=== PATIENT | female | born 1935 | race Caucasian/White ===

== ENCOUNTER 2019-09-04 15:36 | Inpatient (IN) | payer MEDICARE ==
[~2019-09-04] VITALS: Ht 157.5 cm; Wt 63.0 kg
[2019-09-04] MEDS ORDERED: CefTRIAXone 2gm/D5W 50ml 50 ML IV ONE (15:55)
[2019-09-04] MEDS ORDERED: normal saline 1000ML IV soln IV ONE (15:55)
--- NOTE | 2019-09-04 16:02 | NUR ---
PAGED RT FOR BED 5 ABG AT 1606
[2019-09-04 16:41] LABS: ABG BASE EXCESS 0.9 mmol/L (-2.0-3.0); ABG HCO3 23.3 mmol/L (22.0-26.0); ABG OXYGEN SATURATION 91.8 % (95-98); ABG PCO2 (T) 30.3 mmHg (35.0-45.0); ABG PH (T) 7.502 (7.350-7.450); ALLEN'S TEST POSITIVE; FCOHb 0.3 % (0.5-1.5); FLOW 2 L/min; FO2Hb 91.5 % (94-100); PATIENT TEMPERATURE 36.8; TOTAL HEMOGLOBIN 13.5 G/dl (12.0-16.0)
[2019-09-04 16:50] LABS: BASOPHILS % (AUTO) 0 % (0-1); EOSINOPHILS % (AUTO) 0.1 % (0-6); HEMATOCRIT 39.4 % (35.0-45.0); HEMOGLOBIN 13.2 g/dl (12.0-16.0); LYMPHOCYTES # (AUTO) 0.2 X10'3 (1.1-4.8); LYMPHOCYTES % (AUTO) 2.2 % (21-51); MEAN CORPUSCULAR HEMOGLOBIN 31.6 PG (27.0-31.0); MEAN CORPUSCULAR HGB CONC 33.5 g/dL (33.0-36.5); MEAN CORPUSCULAR VOLUME 94.4 FL (78-98); MEAN PLATELET VOLUME 8.8 FL (7.4-10.4); MONOCYTES # (AUTO) 0.1 X10'3 (0-0.9); MONOCYTES % (AUTO) 0.6 % (2-12); NEUTROPHILS # (AUTO) 9.2 X10'3 (1.8-7.7); NEUTROPHILS % (AUTO) 97.1 % (42-75); PLATELET COUNT 164 X10'3 (140-440); RED BLOOD COUNT 4.18 X10'6 (4.20-5.60); RED CELL DISTRIBUTION WIDTH 14.3 % (11.5-14.5); WHITE BLOOD COUNT 9.5 X10'3 (4.5-11.0)
[2019-09-04] MEDS ORDERED: iohexol 350MG/ML 100ml bottle IV ONE (17:05)
[2019-09-04 17:13] LABS: ALANINE AMINOTRANSFERASE 445 U/L (12-78); ALBUMIN 3.7 G/DL (3.4-5.0); ALBUMIN/GLOBULIN RATIO 1.1 (1.1-1.5); ALKALINE PHOSPHATASE 131 IU/L (46-116); ANION GAP 9 (8-16); ASPARTATE AMINO TRANSFERASE 647 U/L (10-37); BILIRUBIN,TOTAL 0.8 MG/DL (0.1-1.0); BLOOD UREA NITROGEN 12 MG/DL (7-18); BUN/CREATININE RATIO 12.6 (6.6-38.0); CALCIUM 9.2 MG/DL (8.5-10.1); CHLORIDE 100 MMOL/L (99-107); CREATININE 0.95 MG/DL (0.40-0.90); GLUCOSE 119 MG/DL (70-104); POTASSIUM 3.9 MMOL/L (3.5-5.1); SODIUM 136 MMOL/L (135-145); TOTAL PROTEIN 7.1 G/DL (6.4-8.2); eGFR 56 ML/MIN
[2019-09-04 17:14] LABS: COLOR,URINE YELLOW (Yellow); GLUCOSE, URINE NEGATIVE (Neg); KETONES,URINE NEGATIVE (Neg); LEUKOCYTE ESTERASE ,URINE NEGATIVE (Neg); NITRITES, URINE NEGATIVE (Neg); OCCULT BLOOD,URINE NEGATIVE (Neg); PH,URINE 7.5 (4.8-8.0); PROTEIN,URINE NEGATIVE (Neg); UROBILINOGEN,URINE 0.2 E.U/dL (0.2-1.0)
[2019-09-04 17:21] LABS: CLARITY,URINE SLIGHTLY CLOUDY (Clear); UA COLLECTION TYPE STRAIGHT CATH
[2019-09-04 17:22] LABS: BACTERIA,URINE NONE SEEN /HPF (Neg); MUCUS STRANDS FEW /LPF (Neg); RBC,URINE 0-2 /HPF (0-2); SQUAMOUS EPITHELIAL CELL,UR NONE SEEN /LPF (FEW); TRANSITIONAL EPI CELLS,URINE FEW /HPF; WBC,URINE 0-4 /HPF (0-4)
--- NOTE | 2019-09-04 17:27 | NUR ---
assumed care of pt, first contact with pt, pt is resting quietly on gurney, resp even and unlabored, mouth is dry, pt c/o feeling cold despite having several blankets, pt used bedpan, able to lift hips without assist, temp 97.8 orally
[2019-09-04 17:39] LABS: C-REACTIVE PROTEIN 0.54 MG/DL (0.0-0.5); LACTATE DEHYDROGENASE 617 U/L (81-234)
--- NOTE | 2019-09-04 17:41 | NUR ---
pt to CT, 2nd liter NS infusing w/o
[2019-09-04 17:42] LABS: FERRITIN 2089 NG/ML (8-252)
--- NOTE | 2019-09-04 18:34 | NUR ---
PT HAS USED BEDPAN SEVERAL TIMES TO URINATE
--- NOTE | 2019-09-04 19:01 | NUR ---
purewick placed as pt constantly needs to urinate, changed linen and cleaned pt up, no skin breakdown to back/coccyx, pulse ox has good pleth, 88%on 2 liters, increase 02 to 4 liter nasal cannula pulse ox 93%, pt has no complaint of SOB, "I feel ok...just really cold"
[2019-09-04] MEDS ORDERED: AMLO5TAB16 PO (19:22)
[2019-09-04] MEDS ORDERED: LEVO50TA8 PO (19:22)
[2019-09-04] MEDS ORDERED: metroNIDAZOLE-Flagyl 500mg/NS 100 ML IV STA (19:44)
[2019-09-04] MEDS ORDERED: ondansetron/PF 4mg/2ml inj IV PRN (20:30)
[2019-09-04] MEDS ORDERED: morphine 2 MG/ML inj. syringe IV PRN (20:30)
--- NOTE | 2019-09-04 20:39 | NUR ---
contacted Gregory, son of pt, at PER REQUEST TO PT, HE IS AWARE PT IS GOING TO BE ADMITTED TO HOSPITAL
--- NOTE | 2019-09-04 20:43 | NUR ---
Patient in room ED 5. I have received report from Suzanne PRATHER in the ED and had the opportunity to ask questions and awaiting arrival of patient to the PCU unit.
--- NOTE | 2019-09-04 20:50 | NUR ---
Patient arrived from the ED to PCU at this time. She is alert and oriented and able to make her needs known although she does appear very weak and states she feels awful. Vitals are stable. She is requiring 4 liters oxygen NC to maintain sats WNL. She is oriented to her room and the call light system. Safety precautions are in place. Will continue to monitor.
[2019-09-04] MEDS: normal saline 1000ml 1,000 ML IV SCH (20:56)
[2019-09-04 21:00] VITALS: BP 135/60
--- NOTE | 2019-09-04 23:20 | NUR ---
PAGER ID: [phone] MESSAGE: Patient Eden Mcghee Rm [id number] There is an order for Hydralazine scheduled Q6H. Should this be PRN? Or is it needed? She usually takes Amlodipine 5mg Daily at home. Currently blood pressure is 135/60. Thank you. Liss PRATHER ext. [phone]
[2019-09-04] MEDS ORDERED: hydrALAZINE 20mg/ml inj. IV PRN (23:30)
[2019-09-05 02:00] VITALS: BP 116/50
[2019-09-05] MEDS ORDERED: hydrALAZINE 20mg/ml inj. IV SCH (02:00)
[2019-09-05 05:34] LABS: BASOPHILS % (AUTO) 0.1 % (0-1); EOSINOPHILS % (AUTO) 0 % (0-6); HEMATOCRIT 35.6 % (35.0-45.0); HEMOGLOBIN 11.9 g/dl (12.0-16.0); LYMPHOCYTES # (AUTO) 0.2 X10'3 (1.1-4.8); LYMPHOCYTES % (AUTO) 1.3 % (21-51); MEAN CORPUSCULAR HEMOGLOBIN 31.7 PG (27.0-31.0); MEAN CORPUSCULAR HGB CONC 33.4 g/dL (33.0-36.5); MEAN CORPUSCULAR VOLUME 95.1 FL (78-98); MONOCYTES # (AUTO) 0.4 X10'3 (0-0.9); MONOCYTES % (AUTO) 3.5 % (2-12); NEUTROPHILS # (AUTO) 11.9 X10'3 (1.8-7.7); NEUTROPHILS % (AUTO) 95.1 % (42-75); PLATELET COUNT 141 X10'3 (140-440); RED BLOOD COUNT 3.75 X10'6 (4.20-5.60); WHITE BLOOD COUNT 12.5 X10'3 (4.5-11.0)
[2019-09-05 05:50] LABS: ALBUMIN 2.8 G/DL (3.4-5.0); ANION GAP 8 (8-16); BLOOD UREA NITROGEN 10 MG/DL (7-18); BUN/CREATININE RATIO 11.8 (6.6-38.0); CALCIUM 7.6 MG/DL (8.5-10.1); CHLORIDE 105 MMOL/L (99-107); CREATININE 0.85 MG/DL (0.40-0.90); GLUCOSE 128 MG/DL (70-104); POTASSIUM 3.6 MMOL/L (3.5-5.1); SODIUM 137 MMOL/L (135-145); TOTAL CARBON DIOXIDE 23.8 MMOL/L (24-32); eGFR 64 ML/MIN
[2019-09-05 06:00] VITALS: BP 125/55
--- NOTE | 2019-09-05 06:14 | NUR ---
Problems reprioritized. Patient report given, questions answered & plan of care reviewed with Annemarie PRATHER.
--- NOTE | 2019-09-05 06:15 | NUR ---
Patient in room PCU 3023. I have received report from YAMILKA Leija and had the opportunity to ask questions and assume patient care. Patient is currently resting in bed, bed locked and low, call light in reach, no acute distress, will continue to monitor.
[2019-09-05] MEDS: normal saline 1000ml 1,000 ML IV SCH ×3 (06:36→21:35)
--- NOTE | 2019-09-05 07:42 | NUR ---
PAGER ID: [phone] MESSAGE: YAMILKA Sharpe, ext [phone], [id number], Taz, was told HIDA scan was ordered but none in order history, ABD US done, does patient still need to be NPO?
[2019-09-05] MEDS: levoTHYROXINE 25mcg tablet PO SCH (07:44)
[2019-09-05] MEDS: CefTRIAXone/D5W-Rocephin 1gm 50 ML IV SCH (07:45)
[2019-09-05] MEDS ORDERED: amLODIPine 5mg tablet PO SCH ×2 (08:00→09:35)
[2019-09-05] MEDS ORDERED: sincalide inj 1.3 MCG in normal saline 50ml IV soln 50 ML IV ONE (09:25)
--- NOTE | 2019-09-05 10:07 | NUR ---
PAGER ID: [phone] MESSAGE: Errol Sharpe, ext [phone], [phone], Taz, patient already received amlodipine 5mg tablet this morning, you put in a new order, did you want her to receive a second dose?
[2019-09-05] MEDS: metroNIDAZOLE-Flagyl 500mg/NS 100 ML IV SCH ×3 (10:21→23:59)
[2019-09-05 11:00] VITALS: BP 106/51
[2019-09-05] MEDS ORDERED: morphine 2 MG/ML inj. syringe IV ONE (13:10)
--- NOTE | 2019-09-05 14:51 | NUR ---
PAGER ID: [phone] MESSAGE: YAMILKA Sharpe, ext [phone], [id number], Angie Mcghee scan negative, can I give patient food?
[2019-09-05 15:00] VITALS: BP 125/50
[2019-09-05 18:00] VITALS: BP 111/54
--- NOTE | 2019-09-05 18:18 | NUR ---
Problems reprioritized. Patient report given, questions answered & plan of care reviewed with YAMILKA Hinojosa.
--- NOTE | 2019-09-05 19:37 | NUR ---
Problems reprioritized. Patient report given, questions answered & plan of care reviewed with Annemarie PRATHER.
[2019-09-05 22:00] VITALS: BP 130/54
[2019-09-06 02:00] VITALS: BP 133/62
--- NOTE | 2019-09-06 05:15 | NUR ---
Paged Dr Peña PAGER ID: [phone] MESSAGE: Taz Harmon [id number] Dx Generalized weakness, flu like symptoms. Pt on flagyl and rocephin. Patient states her throat is sore and that her tongue has blisters. Could I get an order for a probiotic and some type of oral rinse? Ext [phone]
[2019-09-06 06:00] VITALS: BP 144/64
[2019-09-06 06:03] LABS: BASOPHILS % (AUTO) 0.3 % (0-1); EOSINOPHILS # (AUTO) 0.1 X10'3 (0-0.9); EOSINOPHILS % (AUTO) 1.3 % (0-6); HEMATOCRIT 35.5 % (35.0-45.0); HEMOGLOBIN 11.9 g/dl (12.0-16.0); LYMPHOCYTES # (AUTO) 0.6 X10'3 (1.1-4.8); LYMPHOCYTES % (AUTO) 7.2 % (21-51); MEAN CORPUSCULAR HEMOGLOBIN 31.7 PG (27.0-31.0); MEAN CORPUSCULAR HGB CONC 33.6 g/dL (33.0-36.5); MEAN CORPUSCULAR VOLUME 94.5 FL (78-98); MEAN PLATELET VOLUME 9.4 FL (7.4-10.4); MONOCYTES # (AUTO) 0.4 X10'3 (0-0.9); MONOCYTES % (AUTO) 4.9 % (2-12); NEUTROPHILS # (AUTO) 7.4 X10'3 (1.8-7.7); NEUTROPHILS % (AUTO) 86.3 % (42-75); PLATELET COUNT 120 X10'3 (140-440); RED BLOOD COUNT 3.76 X10'6 (4.20-5.60); RED CELL DISTRIBUTION WIDTH 14.1 % (11.5-14.5); WHITE BLOOD COUNT 8.6 X10'3 (4.5-11.0)
--- NOTE | 2019-09-06 06:10 | NUR ---
Patient in room PCU 3023L. I have received report from Ashish PRATHER and had the opportunity to ask questions and assume patient care. Patient laying in bed, eyes closed, no signs of distress, will continue to monitor.
[2019-09-06 06:16] LABS: ANION GAP 8 (8-16); BLOOD UREA NITROGEN 11 MG/DL (7-18); BUN/CREATININE RATIO 16.9 (6.6-38.0); CHLORIDE 105 MMOL/L (99-107); CREATININE 0.65 MG/DL (0.40-0.90); GLUCOSE 98 MG/DL (70-104); POTASSIUM 3.3 MMOL/L (3.5-5.1); SODIUM 135 MMOL/L (135-145); TOTAL CARBON DIOXIDE 22.1 MMOL/L (24-32)
[2019-09-06 06:17] LABS: ALBUMIN 2.8 G/DL (3.4-5.0); CALCIUM 8.2 MG/DL (8.5-10.1); eGFR 87 ML/MIN
--- NOTE | 2019-09-06 06:20 | NUR ---
Problems reprioritized. Patient report given, questions answered & plan of care reviewed with Annemarie Norton.
[2019-09-06] MEDS: heparin, porcine 5000 units/ml vial SQ SCH ×2 (07:40→19:48)
[2019-09-06] MEDS: CefTRIAXone/D5W-Rocephin 1gm 50 ML IV SCH (07:40)
[2019-09-06] MEDS: levoTHYROXINE 25mcg tablet PO SCH (07:40)
--- NOTE | 2019-09-06 07:45 | NUR ---
Patient c/o sore throat, mouth soreness and difficulty with swallowing. Pt states that it is very painful to swallow and this makes her feel like she cannot swallow properly. Pt states that this began before she came to the hospital but has been worsening since being here. She is speaking in full sentences, tolerating secretions and able to drink and eat, but complaints of doing so. Mouth with white areas to tongue and redness to tongue. Will continue to monitor patient.
[2019-09-06] MEDS ORDERED: levoTHYROXINE 25mcg tablet PO SCH (08:00)
[2019-09-06] MEDS: amLODIPine 5mg tablet PO SCH (09:13)
[2019-09-06] MEDS: metroNIDAZOLE-Flagyl 500mg/NS 100 ML IV SCH (09:13)
[2019-09-06 11:00] VITALS: BP 118/61
[2019-09-06] MEDS ORDERED: potassium Cl 20 mEq SR tablet PO PRN (11:30)
[2019-09-06] MEDS ORDERED: potassium CL 10mEq/100ml bag 100 ML IV PRN (11:30)
[2019-09-06] MEDS ORDERED: magnesium Cl slow-release 64mg tablet PO PRN (11:30)
[2019-09-06] MEDS ORDERED: magnesium 4gm in 100ml NS 100 ML IV PRN (11:30)
[2019-09-06] MEDS ORDERED: magnesium hydroxide 30ml (MOM) UD suspension PO ONE (11:35)
[2019-09-06] MEDS ORDERED: docusate sod 100mg capsule PO ONE (11:35)
[2019-09-06] MEDS ORDERED: bisacodyl 10mg suppository rectal RC PRN (11:35)
--- NOTE | 2019-09-06 11:36 | NUR ---
PAGER ID: [phone] MESSAGE: Annemarie tran [phone]. RE Doug Mcghee . Can we switch patient to PO abx or did you want to continue IV abx? Kat wants to know for rehab placement. Thanks!
[2019-09-06] MEDS: K and/or MAG REPLACEMENT MC SCH ×2 (11:54→20:00)
--- NOTE | 2019-09-06 12:00 | NUR ---
Patient tele monitor discontinued at this time per MD order. Reviewed tele monitoring with rn telephonic prior to removal and patient has been sinus rhythm/sinus tachycardia up into the 120-130's with activity, no other changes.
[2019-09-06] MEDS: potassium Cl 20 mEq SR tablet PO PRN ×3 (12:08→21:08)
[2019-09-06] MEDS: normal saline 1000ml 1,000 ML IV SCH ×2 (12:26→21:19)
[2019-09-06] MEDS: nystatin 500,000 unit/5ML UD oral suspension PO SCH ×2 (13:21→21:08)
--- NOTE | 2019-09-06 14:15 | NUR ---
PAGER ID: [phone] MESSAGE: Annemarie tran [phone]. RE Doug Mcghee [id number]. Saw you ordered abx PO for patient, do you want to d/c IV abx? Thanks!
[2019-09-06 15:00] VITALS: BP 144/56
[2019-09-06] MEDS: amox tr/potassium clavulanate 500mg/125mg TAB PO SCH (17:03)
--- NOTE | 2019-09-06 17:30 | NUR ---
Problems reprioritized. Patient report given, questions answered & plan of care reviewed with Ashwini PRAHTER.
[2019-09-06 18:00] VITALS: BP 135/54
[2019-09-06] MEDS: lactobacillus rhamnosus 10,000 MMU CELLS/CAPSULE PO SCH (19:48)
[2019-09-06] MEDS: docusate sod 100mg capsule PO SCH (19:49)
[2019-09-06 22:00] VITALS: BP 151/74
[2019-09-07 02:00] VITALS: BP 140/95
[2019-09-07 06:00] VITALS: BP 144/73
[2019-09-07 06:13] LABS: BASOPHILS % (AUTO) 0.2 % (0-1); EOSINOPHILS # (AUTO) 0.2 X10'3 (0-0.9); EOSINOPHILS % (AUTO) 3.6 % (0-6); HEMATOCRIT 35.8 % (35.0-45.0); HEMOGLOBIN 12.1 g/dl (12.0-16.0); LYMPHOCYTES % (AUTO) 14.6 % (21-51); MEAN CORPUSCULAR HGB CONC 33.8 g/dL (33.0-36.5); MEAN CORPUSCULAR VOLUME 94.6 FL (78-98); MEAN PLATELET VOLUME 8.9 FL (7.4-10.4); MONOCYTES # (AUTO) 0.4 X10'3 (0-0.9); NEUTROPHILS # (AUTO) 5.1 X10'3 (1.8-7.7); NEUTROPHILS % (AUTO) 75.6 % (42-75); PLATELET COUNT 125 X10'3 (140-440); RED BLOOD COUNT 3.79 X10'6 (4.20-5.60); RED CELL DISTRIBUTION WIDTH 14.3 % (11.5-14.5); WHITE BLOOD COUNT 6.8 X10'3 (4.5-11.0)
--- NOTE | 2019-09-07 06:20 | NUR ---
Problems reprioritized. Patient report given, questions answered & plan of care reviewed with YAMILKA Oh.
[2019-09-07 06:27] LABS: ALBUMIN 2.9 G/DL (3.4-5.0); ANION GAP 8 (8-16); BLOOD UREA NITROGEN 6 MG/DL (7-18); BUN/CREATININE RATIO 9.7 (6.6-38.0); CALCIUM 8.1 MG/DL (8.5-10.1); CHLORIDE 106 MMOL/L (99-107); CREATININE 0.62 MG/DL (0.40-0.90); GLUCOSE 95 MG/DL (70-104); SODIUM 136 MMOL/L (135-145); TOTAL CARBON DIOXIDE 22.5 MMOL/L (24-32); eGFR > 90 ML/MIN
[2019-09-07] MEDS: heparin, porcine 5000 units/ml vial SQ SCH (08:00)
[2019-09-07] MEDS: docusate sod 100mg capsule PO SCH (08:00)
[2019-09-07] MEDS: lactobacillus rhamnosus 10,000 MMU CELLS/CAPSULE PO SCH (08:06)
[2019-09-07] MEDS: levoTHYROXINE 25mcg tablet PO SCH (08:06)
[2019-09-07] MEDS: nystatin 500,000 unit/5ML UD oral suspension PO SCH ×2 (08:07→14:20)
[2019-09-07] MEDS: amox tr/potassium clavulanate 500mg/125mg TAB PO SCH (08:07)
[2019-09-07] MEDS: amLODIPine 5mg tablet PO SCH (08:08)
[2019-09-07] MEDS: K and/or MAG REPLACEMENT MC SCH (08:19)
[2019-09-07] MEDS: normal saline 1000ml 1,000 ML IV SCH (08:22)
--- NOTE | 2019-09-07 11:52 | NUR ---
PAGER ID: [phone] MESSAGE: Dr. Curry-Please address the medication area on the discharge for Doug Mcghee in rm 1298I on PCU. Patient is dressed and ready to go. Thank you, Doug Oh RN 8234 PCU
--- NOTE | 2019-09-07 12:09 | NUR ---
PAGER ID: [phone] MESSAGE: Dr. Curry, Please complete discharge for pt Doug Mcghee rm 23C. Patient should have oral antbiotics to go home on for UTi? Thank you, Doug Oh RN 0820 U
[2019-09-07] MEDS ORDERED: NYST1000 PO (12:11)
[2019-09-07] MEDS ORDERED: AMOX1TAB15 PO (12:11)
[2019-09-07 14:16] LABS: ALANINE AMINOTRANSFERASE 146 U/L (12-78); ALBUMIN/GLOBULIN RATIO 0.9 (1.1-1.5); ALKALINE PHOSPHATASE 124 IU/L (46-116); ASPARTATE AMINO TRANSFERASE 58 U/L (10-37); BILIRUBIN,DIRECT 0.2 MG/DL (0-0.3); BILIRUBIN,TOTAL 0.5 MG/DL (0.1-1.0); TOTAL PROTEIN 6.2 G/DL (6.4-8.2)
--- NOTE | 2019-09-07 14:25 | NUR ---
PAGER ID: [phone] MESSAGE: Dr. Curry, pt Doug Mcghee in 23 C on PCU, LFTs have resulted. Please advise. Doug Oh RN 0817
--- NOTE | 2019-09-07 14:45 | NUR ---
Patient discharge complete. All discharge instructions given verbally and written. PIV removed, catheter intact and patient tolerated well. No complications and hemostasis achieved. Patient was alert and oriented and in stable condition.
--- NOTE | 2019-09-10 13:53 | NUR ---
Case Management DC follow up: Spoke to pt via telephone s/p: Reports: Denies: SOB, resp distress, acute/persistent CP, ADRIAN, N/V, blurry vision, emergent general pain, abd tenderness or distention, ADRIAN, blurry vision, vertigo, syncope. verbap Addendum: 09/10/19 at 1417 by Sammie Garcia RN Case Management DC follow up: Spoke to pt daughterHyun via telephone s/p: general weaknes; Dx: UTI, thrush. Reports: Pt "doing alright" thrush looks better per visiting [facility] nurse/[facility]. pt feeling a little chilly, denies fever. Denies: SOB, resp distress, acute/persistent CP, ADRIAN, N/V, blurry vision, emergent general pain, abd tenderness or distention, ADRIAN, blurry vision, vertigo, syncope. Reports no pain/tenderness to bladder s/s of recurrence of UTI. Verbalizes understanding of s/s that would warrant -/ER visit for further evaluation. Verbalizes understanding of current/new Rx & why prescribed; taking as ordered, no ase noted r/t polypharmacy. Acknowledges need to follow-up/keep appts w/PCP, specialists. Questions answered, needs met at [place]. No further questions at this time.
== END 2019-09-07 14:45 | disposition home health service (06) | DRG 871 ==
LOC: ER 15:37 → ED HOLD 20:13 → PCU 3S 20:50
PROVIDERS: ADMIT Internal Medicine; ATTEND Family Medicine
PROC: BW241ZZ Computerized Tomography (CT Scan) of Chest and Abdomen using Low Osmolar Contrast (ICD-10-PCS; principal; 2019-09-04)
PROC: BW211ZZ Computerized Tomography (CT Scan) of Abdomen and Pelvis using Low Osmolar Contrast (ICD-10-PCS; 2019-09-05)
DX: A41.9 Sepsis, unspecified organism (principal); J96.01 Acute respiratory failure with hypoxia; R65.21 Severe sepsis with septic shock; N39.0 Urinary tract infection, site not specified; E87.2 Acidosis; B37.0 Candidal stomatitis; E03.9 Hypothyroidism, unspecified; E78.00 Pure hypercholesterolemia, unspecified; I10 Essential (primary) hypertension; K44.9 Diaphragmatic hernia without obstruction or gangrene; K81.9 Cholecystitis, unspecified; Z88.4 Allergy status to anesthetic agent; Z88.8 Allergy status to other drugs, medicaments and biological substances
CPT/HCPCS: 36415; 36600; 70450; 71045; 71275; 74177; 76700; 78227; 80048; 80053; 80076; 81001; 82728; 82803; 83605; 83615; 83735; 84145; 84443; 85018; 85025; 86140; 87040; 87081; 87635; 93005; 96365; 96367; 97110; 97112; 97116; 97161; 97530; 97535; 99291; A9537; G0378; J0696; J1644; J2270; J2405; J3490; J7030; Q9967

== ENCOUNTER 2021-04-10 10:53 | Emergency (ER) | payer MEDICARE ==
[~2021-04-10] VITALS: Ht 157.5 cm; Wt 66.9 kg
[~2021-04-10 10:53] MED LIST: AMLO5TAB16 PO; AMOX1TAB15 PO; LEVO50TA8 PO; NYST1000 PO
[2021-04-10 11:48] VITALS: BP 142/79
[2021-04-10] MEDS ORDERED: LIDOcaine 5% patch TP STA (11:59)
[2021-04-10] MEDS ORDERED: triamcinolone acetonide 40mg/ml inj IM ONE (12:00)
[2021-04-10] MEDS ORDERED: dexamethasone sod phosphate 10mg/ml inj IM STA (16:54)
[2021-04-10] MEDS ORDERED: DEXA6TAB PO (17:06)
== END 2021-04-10 16:34 | disposition left against medical advice (07) ==
LOC: ER 10:54
DX: M54.50 Low back pain, unspecified (principal); M48.061 Spinal stenosis, lumbar region without neurogenic claudication; E78.00 Pure hypercholesterolemia, unspecified; I10 Essential (primary) hypertension; Z87.440 Personal history of urinary (tract) infections; Z88.1 Allergy status to other antibiotic agents; Z88.8 Allergy status to other drugs, medicaments and biological substances; Z79.2 Long term (current) use of antibiotics; Z79.899 Other long term (current) drug therapy; W18.30XA Fall on same level, unspecified, initial encounter; Y93.89 Activity, other specified; Y92.89 Other specified places as the place of occurrence of the external cause; Y99.8 Other external cause status
CPT/HCPCS: 72131; 96372; 99284; J1100

== ENCOUNTER 2022-12-17 08:58 | Emergency (ER) | payer MEDICARE ==
[~2022-12-17] VITALS: Ht 157.5 cm; Wt 64.2 kg
[~2022-12-17 08:58] MED LIST changes: +DEXA6TAB PO
[2022-12-17 09:08] VITALS: TEMP 98.5
[2022-12-17] MEDS ORDERED: pantoprazole 40mg IV 80 MG in normal saline 100ml IV soln 100 ML IV ONE (12:20)
[2022-12-17] MEDS ORDERED: normal saline 1000ML IV soln IVB ONE (12:20)
[2022-12-17 13:07] LABS: BASOPHILS % (AUTO) 0.4 % (0-1); EOSINOPHILS # (AUTO) 0.1 X10'3 (0-0.9); HEMATOCRIT 38.9 % (35.0-45.0); HEMOGLOBIN 12.8 g/dl (12.0-16.0); LYMPHOCYTES # (AUTO) 2.1 X10'3 (1.1-4.8); LYMPHOCYTES % (AUTO) 34.9 % (21-51); MEAN CORPUSCULAR HEMOGLOBIN 31.2 PG (27.0-31.0); MEAN CORPUSCULAR VOLUME 94.5 FL (78-98); MEAN PLATELET VOLUME 9.1 FL (7.4-10.4); MONOCYTES # (AUTO) 0.4 X10'3 (0-0.9); NEUTROPHILS # (AUTO) 3.5 X10'3 (1.8-7.7); NEUTROPHILS % (AUTO) 57.7 % (42-75); PLATELET COUNT 187 X10'3 (140-440); RED BLOOD COUNT 4.12 X10'6 (4.20-5.60); RED CELL DISTRIBUTION WIDTH 13.6 % (11.5-14.5); WHITE BLOOD COUNT 6.1 X10'3 (4.5-11.0)
[2022-12-17 13:22] LABS: ALANINE AMINOTRANSFERASE 15 U/L (12-78); ALBUMIN 3.8 G/DL (3.4-5.0); ALBUMIN/GLOBULIN RATIO 1.1 (1.1-1.5); ALKALINE PHOSPHATASE 85 IU/L (46-116); ANION GAP 9 (8-16); ASPARTATE AMINO TRANSFERASE 20 U/L (10-37); BILIRUBIN,TOTAL 0.4 MG/DL (0.1-1.0); BLOOD UREA NITROGEN 11 MG/DL (7-18); BUN/CREATININE RATIO 15.9 (10.0-20.0); CALCIUM 9.1 MG/DL (8.5-10.1); CHLORIDE 102 MMOL/L (99-107); CREATININE 0.69 MG/DL (0.40-0.90); GLUCOSE 109 MG/DL (70-104); POTASSIUM 3.8 MMOL/L (3.5-5.1); SODIUM 138 MMOL/L (135-145); TOTAL PROTEIN 7.2 G/DL (6.4-8.2); eCRCL 46 ML/MIN; eGFR 81 ML/MIN
[2022-12-17 13:26] LABS: LIPASE 158 U/L (73-393)
[2022-12-17 14:00] LABS: BILIRUBIN,URINE NEGATIVE (Neg); CLARITY,URINE CLEAR (Clear); COLOR,URINE STRAW (Yellow); GLUCOSE, URINE NEGATIVE (Neg); KETONES,URINE TRACE mg/dl (Neg); LEUKOCYTE ESTERASE ,URINE NEGATIVE (Neg); NITRITES, URINE NEGATIVE (Neg); OCCULT BLOOD,URINE NEGATIVE (Neg); PH,URINE 6.5 (4.8-8.0); PROTEIN,URINE NEGATIVE (Neg); UROBILINOGEN,URINE 0.2 E.U/dL (0.2-1.0)
[2022-12-17 14:02] LABS: UA COLLECTION TYPE VOIDED
[2022-12-17 14:13] VITALS: BP 134/52; PULSE 70; RESP 16; O2SAT 95
[2022-12-17] MEDS ORDERED: LANS30CA37 PO (14:35)
[2022-12-17 17:45] LABS: OCCULT BLOOD STOOL NEGATIVE (Neg)
== END 2022-12-17 15:28 | disposition home or self-care (01) ==
LOC: ER 08:59
DX: K29.70 Gastritis, unspecified, without bleeding (principal); E78.00 Pure hypercholesterolemia, unspecified; I10 Essential (primary) hypertension; Z88.2 Allergy status to sulfonamides; Z79.899 Other long term (current) drug therapy; Z79.2 Long term (current) use of antibiotics
CPT/HCPCS: 36415; 80053; 81003; 82272; 83690; 84484; 85025; 96365; 99284; C9113; J3490; J7030

== ENCOUNTER 2023-03-19 20:03 | Emergency (ER) | payer MEDICARE ==
[~2023-03-19] VITALS: Ht 157.5 cm; Wt 65.0 kg
[~2023-03-19 20:03] MED LIST changes: +LANS30CA37 PO
[2023-03-19 20:46] VITALS: TEMP 97.9
[2023-03-19 20:57] LABS: CLARITY,URINE CLEAR (Clear); COLOR,URINE ORANGE (Yellow)
[2023-03-19 21:02] LABS: UA COLLECTION TYPE STRAIGHT CATH
[2023-03-19 21:03] LABS: SQUAMOUS EPITHELIAL CELL,UR NONE SEEN /LPF (FEW)
[2023-03-19 21:04] LABS: BASOPHILS % (AUTO) 0.4 % (0-1); EOSINOPHILS # (AUTO) 0.1 X10'3 (0-0.9); EOSINOPHILS % (AUTO) 1.3 % (0-6); HEMATOCRIT 38.8 % (35.0-45.0); LYMPHOCYTES % (AUTO) 41.1 % (21-51); MEAN CORPUSCULAR HEMOGLOBIN 31.6 PG (27.0-31.0); MEAN CORPUSCULAR HGB CONC 33.4 g/dL (33.0-36.5); MEAN CORPUSCULAR VOLUME 94.4 FL (78-98); MONOCYTES # (AUTO) 0.4 X10'3 (0-0.9); MONOCYTES % (AUTO) 5.6 % (2-12); MUCUS STRANDS MODERATE /LPF (Neg); NEUTROPHILS # (AUTO) 3.8 X10'3 (1.8-7.7); NEUTROPHILS % (AUTO) 51.6 % (42-75); PLATELET COUNT 190 X10'3 (140-440); RBC,URINE 0-2 /HPF (0-2); RED BLOOD COUNT 4.11 X10'6 (4.20-5.60); RED CELL DISTRIBUTION WIDTH 14.1 % (11.5-14.5); WBC,URINE 0-4 /HPF (0-4); WHITE BLOOD COUNT 7.4 X10'3 (4.5-11.0)
[2023-03-19 21:05] LABS: BACTERIA,URINE 1+ /HPF (Neg)
[2023-03-19 21:16] LABS: PROTHROMBIN TIME 10.7 SECONDS (9.0-12.0)
[2023-03-19 21:23] LABS: ALANINE AMINOTRANSFERASE 23 U/L (12-78); ALBUMIN/GLOBULIN RATIO 1.3 (1.1-1.5); ALKALINE PHOSPHATASE 88 IU/L (46-116); ANION GAP 8 (8-16); ASPARTATE AMINO TRANSFERASE 29 U/L (10-37); BILIRUBIN,TOTAL 0.4 MG/DL (0.1-1.0); BLOOD UREA NITROGEN 10 MG/DL (7-18); BUN/CREATININE RATIO 12.8 (10.0-20.0); CALCIUM 9.2 MG/DL (8.5-10.1); CHLORIDE 100 MMOL/L (99-107); CREATININE 0.78 MG/DL (0.40-0.90); GLUCOSE 134 MG/DL (70-104); LIPASE 143 U/L (16-77); POTASSIUM 3.4 MMOL/L (3.5-5.1); SODIUM 134 MMOL/L (135-145); TOTAL CARBON DIOXIDE 25.8 MMOL/L (24-32); TOTAL PROTEIN 7.2 G/DL (6.4-8.2); eCRCL 41 ML/MIN; eGFR 70 ML/MIN
[2023-03-19] MEDS ORDERED: CefTRIAXone/D5W-Rocephin 1gm 50 ML IV ONE (22:25)
[2023-03-19] MEDS ORDERED: ipratropium/albuterol 3ml nebule NEB ONE (22:25)
[2023-03-19] MEDS ORDERED: normal saline 1000ml 1,000 ML IV ONE (22:25)
[2023-03-20] MEDS ORDERED: ketorolac trometh. 30mg/ml inj. IV ONE (02:35)
[2023-03-20] MEDS ORDERED: acetaminophen 325mg tablet PO ONE (02:35)
[2023-03-20 02:45] VITALS: BP 134/69; PULSE 80; RESP 17; O2SAT 96
== END 2023-03-20 03:12 | disposition home or self-care (01) ==
LOC: ER 20:04
DX: N39.0 Urinary tract infection, site not specified (principal); E78.00 Pure hypercholesterolemia, unspecified; I10 Essential (primary) hypertension; E03.9 Hypothyroidism, unspecified; Z88.2 Allergy status to sulfonamides; Z88.8 Allergy status to other drugs, medicaments and biological substances
CPT/HCPCS: 36415; 71045; 74176; 80053; 81001; 83605; 83690; 84145; 85025; 85610; 87040; 87088; 96365; 96366; 96375; 99285; J0696; J1885; J7030